=== PATIENT | female | born 1945 | race African-American/Black ===

== ENCOUNTER 2018-05-06 20:35 | Emergency (ER) | payer MEDICARE ==
[2018-05-06] MEDS ORDERED: Lidocaine Viscous Sol 2% 15 ml UD Cup ONE (20:53)
[2018-05-06] MEDS ORDERED: Mag-Al Plus 1200 MG/1200 MG/120 MG/30 ML UDCUP ONE (20:54)
[2018-05-06 21:01] LABS: #Eosinphils 0.1 thou/uL (0.0-0.7); #Lymphocytes 1.1 thou/uL (1.20-3.40); #Monocytes 0.4 thou/uL (0.11-0.59); #Neutrophils 3.4 thou/uL (1.40-6.50); %Basophils 0.7 % (0.0-1.0); %Lymphocytes 21.6 % (21.0-51.0); %Monocytes 7.7 % (0.0-10.0); %Neutrophils 67.9 % (42.0-75.0); Mean Corpuscular HGB CONC 31.8 g/dL (32.0-36.0); Mean Corpuscular Volume 84.8 fL (78.0-98.0); Platelet Count 195 thou/uL (130-400); RBC Distribution Width 12.2 % (11.5-14.5); Red Blood Cell (RBC) Count 4.46 mill/uL (4.20-5.40); White Blood Cell (WBC) Count 4.9 thou/uL (4.8-10.8)
--- NOTE | 2018-05-06 21:22 | RAD ---
CHEST ONE VIEW: 05/06/18 HISTORY: 72-year-old female with history of chest pain and gastroesophageal reflux. Heart size is within normal limits. The lungs appear clear. No confluent pneumonia, overt edema, pleu ral effusion, or other acute process. IMPRESSION: No active intrathoracic disease. POS: [facility]
[2018-05-06 21:23] LABS: ALT (SGPT) 19 U/L (8-55); AST (SGOT) 24 U/L (5-34); Albumin 4.3 g/dL (3.4-4.8); Alkaline Phosphatase 81 U/L (40-150); Anion Gap 15 mmol/L (10-20); BUN (Urea Nitrogen) 16 mg/dL (9.8-20.1); Bilirubin, Total 0.4 mg/dL (0.2-1.2); Calc. Creatinine Clearance 0 mL/min (70-130); Calcium 9.7 mg/dL (7.8-10.44); Carbon Dioxide 24 mmol/L (23-31); Chloride 106 mmol/L (98-107); Estimated GFR-MDRD 86; Globulin 3.2 g/dL (2.4-3.5); Glucose 109 mg/dL (83-110); Potassium 3.6 mmol/L (3.5-5.1); Protein, Total 7.5 g/dL (6.0-8.3); Sodium 141 mmol/L (136-145)
== END 2018-05-06 22:42 | disposition short-term general hospital (02) ==
LOC: NAV ERS 20:35
DX: R07.2 Precordial pain (principal); K21.9 Gastro-esophageal reflux disease without esophagitis; Z79.899 Other long term (current) drug therapy
CPT/HCPCS: 36415; 71045; 80053; 83880; 84484; 85025; 93005